=== PATIENT | male | born 1940 | race Caucasian/White ===

== ENCOUNTER 2020-07-23 10:01 | Day surgery (SDC) | payer MEDICARE, SELFPAY ==
--- NOTE | 2020-07-20 15:58 | HP_ITS ---
DATE OF SERVICE: 07/23/2020 DATE OF PROPOSED SURGERY: July 23, 2020. PREOPERATIVE DIAGNOSES: 1. Skin disease, right foot/skin ulcer. 2. Hammertoe, right 2nd. 3. Hammertoe, right 3rd. 4. Hammertoe, right 4th. PLANNED PROCEDURES: 1. Excision of skin ulcer, right foot. 2. Hammertoe repair, right second toe. 3. Hammertoe repair, right 3rd toe. 4. Hammertoe repair, right 4th toe. 5. Complex wound closure over exposed bone. PLANNED ANESTHESIA: Local anesthesia. CHIEF COMPLAINT AND HISTORY OF PRESENT ILLNESS: Chato Simpson is an 80-year-old male, who relates history of skin ulceration with skin infection involving the right second toe as well as painful stiff arthritic hammertoes, right 2nd, 3rd, and fourth toes. This condition has been present over the past several years with the skin ulcer being most recently present over the past several months. Conservative care consisting of wound care, antibiotics, use of diabetic shoes, accommodative padding have all been utilized and the patient is now requesting surgical treatment. PAST MEDICAL HISTORY: Remarkable for diabetes, asthma, glaucoma, osteoarthritis, reflux esophagitis, thyroid disease, prostate disease. CURRENT MEDICATIONS: Doxazosin, Levothroid, Restasis, Advair, Singulair, gabapentin, meloxicam, Latanoprost, finasteride, Zyrtec, gabapentin, dorzolamide. ALLERGIES: THE PATIENT HAS NEGATIVE REACTION TO BIAXIN, CIPRO, DARVOCET. FAMILY HISTORY: Significant for arthritis and heart disease and history of foot problems. SOCIAL HISTORY: The patient relates he quit smoking in 1987, denies use of any recreational drugs. The patient does drink 4 cups of coffee per day and also relates some mild alcohol consumption. PODIATRIC PHYSICAL EXAMINATION: VASCULAR EXAM: Displays +2/4 pulse DP, +1/4 pulse PT arteries bilateral. DERMATOLOGIC: Reveals a grade 0 ulcer on the plantar aspect of the right second toe. Otherwise, skin is intact with multiple keratoses, bilateral feet. NEUROLOGIC EXAM: Reveals decreased vibratory sensation, sharp, dull sensation, and monofilament testing of bilateral feet. ORTHOPEDIC EXAM: Reveals rigid hammertoe contracture right 2nd, 3rd, and fourth toes. The patient was seen most recently in my office on July 07, 2020. Preoperative informed consent was obtained from the patient that day for his planned right foot surgery. PLANNED ANESTHESIA: Local anesthesia. CHUY Trmamell/ANGELINA / [phone]
--- NOTE | 2020-07-21 15:36 | MHC.SHP ---
Pre-Procedural Eval Section A The patient is an INPATIENT: No Changes since office visit: No Cold of Flu in the past 2 weeks, No New Medical Problems, No Changes in Medication and No Patient answered all questions The History & Physical has been completed within 30 days and I have reviewed it.: Yes Section B Chief Complaint: Skin Debridement right foot ulcer, HT 2nd,3rd,4th Plan Patient has been examined and remains a candidate for the planned procedure
[2020-07-23 10:26] VITALS: BMI 36.7
[2020-07-23 10:27] VITALS: BP 121/73; PULSE 79; RESP 16; TEMP 36.7; O2SAT 96
--- NOTE | 2020-07-23 10:34 | MHC.SHP ---
Pre-Procedural Eval Section B Chief Complaint: Skin Debridement right foot ulcer, HT 2nd,3rd,4th Allergies: Allergies Allergy/AdvReac Type Severity Reaction Status Date / Time ciprofloxacin [From Cipro] AdvReac Intermediate Muscle Pain Verified 07/21/20 19:41 clarithromycin [From Biaxin] AdvReac Intermediate Agitated Verified 07/21/20 19:41 Plan Patient has been examined and remains a candidate for the planned procedure
--- NOTE | 2020-07-23 11:33 | MHC.SHP ---
Pre-Procedural Eval Section A The patient is an INPATIENT: No Changes since office visit: No Cold of Flu in the past 2 weeks, No New Medical Problems, No Changes in Medication and No Patient answered all questions The History & Physical has been completed within 30 days and I have reviewed it.: Yes Section B Chief Complaint: Skin Debridement right foot ulcer, HT 2nd,3rd,4th Allergies: Allergies Allergy/AdvReac Type Severity Reaction Status Date / Time ciprofloxacin [From Cipro] AdvReac Intermediate Muscle Pain Verified 07/21/20 19:41 clarithromycin [From Biaxin] AdvReac Intermediate Agitated Verified 07/21/20 19:41 Plan Diagnosis/Plan: Unchanged Patient has been examined and remains a candidate for the planned procedure
[2020-07-23 12:51] VITALS: BP 133/76; PULSE 72; RESP 20; TEMP 36.4; O2SAT 96
--- NOTE | 2020-07-23 12:56 | P.BOP_ITS ---
Brief Operative Note Date of procedure: 07/23/20 Pre-op diagnosis: hammertoe right 2nd, 3rd and 4th toes, skin ulcer right 2nd and 3rd toes Post-op diagnosis: same Procedure: hammertoe repair right 2,3 and 4th toes, excision of skin ulcers rig ht 2nd, 3rd toes and complex wound closure over exposed tendon and bone right foot Surgeon: Goyo Bradshaw Anesthesia: local Estimated blood loss (mL): 6.0 Condition: stable
[2020-07-23 13:06] VITALS: BP 124/74; PULSE 78; RESP 16; TEMP 36.3; O2SAT 96
--- NOTE | 2020-07-23 21:15 | OP_ITS ---
SURGEON: Goyo Bradshaw DPM PREOPERATIVE DIAGNOSIS: POSTOPERATIVE DIAGNOSIS: PROCEDURE PERFORMED: ESTIMATED BLOOD LOSS: COMPLICATIONS: ANESTHESIA: Consisted of local administration of a total of 9 cc of 2% lidocaine with epinephrine 1:[id number], 0.5% Marcaine plain. ASSISTANTS: SPECIMENS: PREOPERATIVE DIAGNOSES: 1. Skin disease, right 2nd and 3rd toes with history of skin ulceration. 2. Hammertoe, right 2nd. 3. Hammertoe, right 3rd. 4. Hammertoe, right 4th. POSTOPERATIVE DIAGNOSES: 1. Skin disease, right 2nd and 3rd toes with history of skin ulceration. 2. Hammertoe, right 2nd. 3. Hammertoe, right 3rd. 4. Hammertoe, right 4th. PROCEDURES PERFORMED: 1. Excision of skin ulcers and diseased skin, right 2nd and 3rd toes. 2. Hammertoe repair, right 2nd. 3. Hammertoe repair, right 3rd. 4. Hammertoe repair, right 4th. 5. Complex wound closure over exposed bone, right 2nd and 3rd toes. INTRODUCTION: The patient was brought to the operating room, placed on the operating table in the supine position. After having been suitably anesthetized with local infiltrative anesthesia, the right lower extremity was then prepped and draped in usual sterile manner. HAMMERTOE REPAIR OF RIGHT 2ND, 3RD, AND 4TH TOES: Attention was directed to the dorsal aspect of the right 2nd, 3rd, and 4th toes where dorsal linear incisions were effected overlying the proximal interphalangeal joint. The incision was deepened in the same plane and the ellipse of skin was excised from the wound in toto. Skin margins were underscored and retracted. Transverse incision was effected through the extensor cut tendon complex and the extensor tendon was underscored and retracted. The hypertrophic head of the proximal phalanx was then delivered from the wound and the hypertrophic head was resected utilizing a power sagittal saw. The wound was irrigated with copious amounts of sterile saline. Redundant extensor tendon was trimmed utilizing tenotomy scissors and then coapted to maintain utilizing 3-0 Vicryl. Skin margins were closed with 4-0 nylon simple sutures. EXCISION OF SKIN ULCER AND DISEASED SKIN, DISTAL ASPECT OF RIGHT 2ND 3RD TOES: Attention was now directed to the dorsal aspect of the right 2nd and 3rd toes, where a transverse incisions were effected at the level of the distal interphalangeal joint and converging elliptical incision was effected distally. The incisions were deepened in the same plane. An ellipse of skin was excised from the wound in toto along with the hypertrophic and dystrophic distal phalanx and nail at the distal aspect of these respective toes. The head of the middle phalanx was found to be hypertrophic and was resected utilizing bone cutting forceps. The wound was irrigated. The skin margins were then coapted to maintain utilizing 3-0 nylon. CONCLUSION: At the conclusion of these procedures, the operative sites were injected with total of 4 cc of Marcaine 0.5% plain. Sterile Xeroform, sterile Betadine-soaked gauze, Kerlix fluffs, and Conform were applied to the right lower extremity. The patient tolerated the surgery and anesthesia well and left the operating room via cart to the recovery room with vital signs stable. FINAL DISPOSITION: The patient is discharged to home with instructions for self-care include the followin. To keep dressings dry, clean, and intact. 2. To keep the right leg elevated with ice behind the ankle. 3. To take all medications as prescribed. 4. To limit activity to minimum. 5. To always use surgical shoe and walker when ambulating. 6. Lastly, the patient has prescriptions for ibuprofen 800 mg 1 p.o. t.i.d. p.c., Keflex 500 mg 1 p.o. b.i.d. for 10 days, and gabapentin 300 mg 3 times a day. PILL MACHINE OPERATOR: Ayana Aguiar. CHUY Trammell / [phone]
== END 2020-07-23 23:59 | disposition home or self-care (01) ==
PROVIDERS: PCP Internal Medicine; Visit Provider Podiatrist
PROC: (CPT 28285; principal; 2020-07-23 11:30)
DX: M20.41 Other hammer toe(s) (acquired), right foot (principal); L97.511 Non-pressure chronic ulcer of other part of right foot limited to breakdown of skin; L98.9 Disorder of the skin and subcutaneous tissue, unspecified
CPT/HCPCS: 28285 ×3; 11042; 88304; 88305; 88311; J1100

== ENCOUNTER → 2022-07-06 11:19 | Outpatient (BNVA) | payer MEDICARE, SELFPAY | PROVIDERS: PCP Internal Medicine; Visit Provider Dietitian, Registered | DX: E11.9 Type 2 diabetes mellitus without complications (principal); Z71.3 Dietary counseling and surveillance | CPT/HCPCS: 97803 ==

== ENCOUNTER 2023-04-24 12:26 | Outpatient (AMB) | payer MEDICARE, SELFPAY ==
[2023-04-24 12:55] VITALS: BMI 36.1
--- NOTE | 2023-04-24 12:55 | A.OFFVIS_ITS ---
Intake VS Expanded 04/24/23 12:55 Height 5 ft 8.5 in Weight 241 lb 2.971 oz BMI 36.1 Intake Visit Reasons: DM2 Allergies ciprofloxacin [From Cipro] Adverse Reaction (Intermediate, Verified 07/21/20 19:41) Muscle Pain clarithromycin [From Biaxin] Adverse Reaction (Intermediate, Verified 07/21/20 19:41) Agitated Medication List - Last Reconciled 04/25/[address], LDN amoxicillin 500 mg PO ONCE chlorhexidine gluconate 0.12% 1 appl PO ONCE cholecalciferol (vitamin D3) 10 mcg PO DAILY docusate sodium (Colace) 100 mg PO BID dorzolamide 2% 1 drp ophthalmic (eye) DAILY finasteride 5 mg PO DAILY flaxseed-omega3,6,9-fatty acid 1,300-670-155 mg caps PO fluticasone propion-salmeterol 250-50 mcg/dose (Wixela Inhub) 1 inh inhalation DAILY gabapentin 300 mg PO BID hydrocortisone 2.5% 1 appl topical DAILY ketoconazole 2% 1 appl topical DAILY latanoprost 0.005% 1 drp ophthalmic (eye) DAILY levothyroxine 88 mcg PO DAILY dghbbm-zxeppkhg-cnmbgxe 36,000-114,000- 180,000 unit (Creon) 1 cap PO TID meloxicam 15 mg PO DAILY mometasone 0.1% 1 appl topical DAILY montelukast 10 mg PO DAILY triamcinolone acetonide 0.025% 1 appl topical DAILY [Zyrtec ] HPI Nutrition Presentation Details Pt presents for MNT f/u for pre diabetes ,and obesity. Pt reports having pancreatic insufficiency and is taking creon with each meal Patient presents with his . Patient reports participating in weight watchers in the past, working on reducing portion sizes. Has challenges with with satiety however finds that having a salad satisfies Most Recent Diabetes Results: No Data to Display [facility] Medical History (Updated 07/14/22 @ 13:[address], LDN) Arthritis Asthma Back pain COPD (chronic obstructive pulmonary disease) GERD (gastroesophageal reflux disease) History of eczema Hypothyroid Numbness and tingling of both feet Sleep apnea with use of continuous positive airway pressure (CPAP) Surgical History History of colonoscopy History of left cataract surgery History of right cataract surgery History of total left knee replacement (TKR) Social History Advance Directives Date on File: 10/20/14 Assessment & Plan Assessment & Plan (1) T2DM (type 2 diabetes mellitus): Code(s): E11.9 - Type 2 diabetes mellitus without complications Plan Educate Pt on healthy plate method, goal [id number] brittney meal plan ? Pt's set goal (Date: 07/06/22 ): follow healthy plate method 2x/d and continue reducing sugar intake as established at follow up (Date: ): met 25% 50% 100% Not met Used wt : 107 kg Est kcal as per MSJ:2100(40% carb, 30% fat/prot) Est fluid needs: 2675 ml/d (25 ml/kg bw) Rec fiber: increase to 8-10 g per day and gradually increase to 35 g or as tolerated Rec Na: < 2000 mg /d Educate patient on: (R= Reviewed, V = verbalizes understanding N/R= Needs review N/A= not applicable) * Food sources of carbohydrates and serving adequate serving sizes : R V * Difference between complex carbohydrates and simple carbohydrates, role of fiber: R V * Differences between fats (MUFA/PUFA/saturated fats, trans fats) and food sources of various fats: R * Food sources of sodium and salt and healthy modifications for heart health and kidney health: NR * Vitamins and minerals: R * How to interpret food labels: R (reducing sugar intake , serving size) * Healthy Plate method concept: R V * Physical activity: benefits and precaution: N/R Patient Instructions: Work on following healthy plate method, use small plates Follow mindful eating strategies Choose high fiber sources of foods and increase your water/fluid intake to prevent constipation as fiber intake is increased Coding Level of Care Code Nutr Indiv Subseq (57729) Diagnoses T2DM (type 2 diabetes mellitus) E11.9 Time Spent (min) 30
== END 2023-04-24 16:02 | disposition home or self-care (01) ==
PROVIDERS: PCP Internal Medicine; Visit Provider Dietitian, Registered
DX: E11.9 Type 2 diabetes mellitus without complications (principal)

== ENCOUNTER → 2023-04-24 12:26 | Outpatient (BNVA) | payer MEDICARE, SELFPAY | PROVIDERS: Visit Provider Dietitian, Registered | DX: E11.9 Type 2 diabetes mellitus without complications (principal); E66.9 Obesity, unspecified; Z71.3 Dietary counseling and surveillance | CPT/HCPCS: 97803 ==